=== PATIENT | male | born 1995 ===

== ENCOUNTER 2021-11-01 18:07 | Emergency (ER) | payer SELFPAY ==
[2021-11-01 19:28] LABS: Mucus,Urine FEW /HPF; WBC,Urine < 1.0 /HPF (0.0-6.0)
[2021-11-01 19:32] LABS: Amphetamine Screen,Urine Negative; Benzodiazepines Screen,Urine Negative; Methadone Screen,Urine Negative; Opiate Screen,Urine Negative
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
[2021-11-01 19:43] LABS: Color,Urine Colorless (Yellow)
[2021-11-01 19:50] LABS: Basophils % (Auto) 0.3 % (0.0-1.8); Eosinophils # (Auto) 0.2 K/mm3 (0.0-0.4); Eosinophils % (Auto) 2.4 % (0.0-4.3); Hematocrit 35.4 % (35.5-45.6); Hemoglobin 12.4 gm/dl (11.8-15.2); Lymphocytes % (Auto) 21.7 % (13.4-35.0); Mean Corpuscular HGB Conc 35 % (32-34); Mean Corpuscular Volume 90 fl (84-94); Monocytes # (Auto) 0.4 K/mm3 (0.0-0.8); Monocytes % (Auto) 4.5 % (0.0-7.3); Platelet Count 192 K/mm3 (140-440); Red Blood Count 3.93 M/mm3 (3.65-5.03); Red Cell Distribution Width 12.7 % (13.2-15.2)
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
[2021-11-01 19:58] LABS: BUN/Creatinine Ratio 13; Blood Urea Nitrogen 13 mg/dL (9-20); Calcium 9.7 mg/dL (8.4-10.2); Hemolysis Index 12
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
[2021-11-01 19:59] LABS: Cannabinoid Screen,Urine Positive; Cocaine Screen,Urine Positive
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
[2021-11-02] MEDS ORDERED: FLUoxetine 20 MG CAP PO SCH (11:00)
[2021-11-02] MEDS ORDERED: HALOPERIDOL 5 MG TAB PO SCH (11:00)
--- NOTE | 2021-11-02 11:47 | Event Note ---
Date: 11/02/21 vss , no events over night , awaiting disposition medically cleared
[2021-11-02] MEDS ORDERED: traZODone 50 MG TAB PO SCH (22:00)
[2021-11-03] MEDS ORDERED: FLUoxetine 20 MG CAP PO SCH (11:00)
[2021-11-03] MEDS ORDERED: FLUoxetine 10 MG TAB PO SCH (11:00)
[2021-11-03 11:29] VITALS: BP 115/75
== END 2021-11-03 12:01 | disposition still patient (30) ==
LOC: ED 18:07 → EEVIPCON 18:07 → ED 11-03 12:01
DX: F19.10 Other psychoactive substance abuse, uncomplicated (principal); F31.9 Bipolar disorder, unspecified; Z20.822 Contact with and (suspected) exposure to COVID-19; Z91.010 Allergy to peanuts; Z79.899 Other long term (current) drug therapy
CPT/HCPCS: 36415; 70450; 70486; 72125; 80048; 80307; 81001; 85025; 99285; U0003; 80320; G0480